=== PATIENT | female | born 2005 | race Caucasian/White ===

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

== ENCOUNTER 2024-01-18 23:55 | Emergency (ER) | payer SELFPAY ==
[~2024-01-18] VITALS: Ht 160 cm; Wt 83.0 kg
[2024-01-19] VITALS: BP 150/90
[2024-01-19] MEDS ORDERED: CORTISPORIN OTI10 ML AS (00:10)
[2024-01-19] MEDS ORDERED: CIPROFLOXACIN HCL 500 MG/TAB PO ONE (00:10)
[2024-01-19] MEDS ORDERED: NEOMYCIN-POLYMYXIN-HC OTIC SUSP. 10 ML BTL AS ONE (00:10)
[2024-01-19] MEDS ORDERED: CIPROFLOXACN500 MG PO (00:10)
== END 2024-01-19 00:30 | disposition home or self-care (01) | DRG 156 ==
LOC: ED 23:55
DX: H60.92 Unspecified otitis externa, left ear (principal); Z86.16 Personal history of COVID-19